=== PATIENT | male | born 1955 | race Caucasian/White ===

== ENCOUNTER 2018-06-15 23:22 | Inpatient (IN) | payer BC, MEDICARE ==
[~2018-06-15] VITALS: Ht 165.1 cm; Wt 80.9 kg
--- NOTE | ~2018-06-15 | OP ---
PATIENT NAME: FAISAL RUIZ MEDICAL RECORD: [id number] :59 LOCATION:D.[facility] D.2308 ADMISSION DATE:06/15/18 SURGEON: CANDE STORY MD DATE OF OPERATION: 06/19/2018 This is a 2D only. FINDINGS: No LVH. LV internal dimensions are normal. Wall motion is normal. EF is greater than or equal to 55%. Aortic valve is tricuspid. Left atrium grossly appears of normal dimensions. Mitral valve shows no prolapse. Right-sided chambers are grossly normal. Probable vegetation is noted on tricuspid valve but transthoracic difficult to see if this involves a pacemaker lead as well. Consider transesophageal echo felt to be clinically indicated. TRANSINT:[id number] Voice Confirmation ID: [id number] DOCUMENT ID: [id number] CANDE STORY MD at 1546 CC: [id number] DICTATION DATE: 06/19/18 1522 HVAC FIELD SERVICE TECHNICIAN: 06/19/18 2224 DIS IN 06/23/18 [facility] [address] [place] [address]
--- NOTE | ~2018-06-15 | MORECARE ---
CASE MANAGEMENT DISCHARGE SUMMARY PATIENT: FAISAL YANG UNIT: [id number] ADM DATE: 06/15/18 AGE: 62 : 59 SEX: M ROOM/BED: D.2308 AUTHOR: OLIVIA,DOC PHYSICIAN: REFERRING PHYSICIAN: GENNA LEWIS MD DATE OF SERVICE: 06/22/18 Discharge Plan Patient Name: FAISAL YANG Facility: [facility]:[place] : 1955 Planned Disposition: Home Anticipated Discharge Date: Discharge Date: Expected LOS: Initial Reviewer: [email or web address] Initial Review Date: 06/17/2018 Generated: 06/22/18 7:37 pm Comments DCP- Discharge Planning Updated by [email or web address]: Rosa Nettles on 06/22/18 5:[address] BALBUENA ADVISED CM THAT HE HAD ORDERED A HOSPICE CONSULT. HE HAD SPOKEN WITH THE WHO STAYS AT THE PATIENT'S BEDSIDE. SHE WOULD LIKE TO TAKE HER HOME ON HOSPICE. SHE DID NOT HAVE A PREFERRED PROVIDER. CM REVIEWED HOSPICE PROVIDERS. TC TO [facility]. CM SPOKE WITH JUVE THE SCHOOL ATTENDANCE SECRETARY NURSE. . SHE HAD TO CHECK WHICH OFFICE WOULD COVER THE [place] AREA. CM RECEIVED CB THAT THE [place] OFFICE OF [facility] WILL COVER. SOMEONE WILL BE IN TO SPEAK WITH THE IN THE AM. PLAN FOR DISCHARGE POSSIBLY SUNDAY LIKELY SUNDAY. CM WILL FOLLOW TO ASSIST. CM PROVDED CONTACT PHONE NUMBER FOR THE IN THE PATIENT'S ROOM SHE DOES NOT HAVE A CELL PHONE. CM ADVOSED THE , LAURA YANG. PACKET PREPARED FOR REVIEW IN THE AM. DCP- Discharge Planning Updated by [email or web address]: Yasmine Macias on 06/17/18 12:[address] Patient Name: FAISAL YANG Admission Status: Elective Accout number: [id number] Admission Date: 06-15-2018 : 1955 Admission Diagnosis: Attending: GENNA LEWIS Current LOS: 2 Anticipated DC Date: Planned Disposition: Home Primary Insurance: [employer] OUT OF STATE Discharge Planning Comments: CM met with patient and spouse Laura at bedside. Patient confused at this time. Laura states he was independent of all ADLs prior to admission to hospital in [place]. Patient has oxygen at home and uses it as needed. CPAP and walker at home. Laura states that his confusion comes and goes. Laura denies any discharge needs at this time. CM will continue to follow and assist as needed with discharge planning. Manager Business Banking: Yasmine Macias DCPIA - Discharge Planning Initial Assessment Updated by [email or web address]: Yasmine Macias on 06/17/18 12:49 pm * Is the patient Alert and Oriented? Yes * How many steps to enter\exit or inside your home? * PCP Dr Delaney * Pharmacy [facility] * Preadmission Environment Home with Family * ADLs Independent * Equipment Oxygen * Other Equipment CPAP, 02 PRN. Walker * List name and contact numbers for known caregivers / representatives who currently or will assist patient after discharge: Laura Yang - spouse- [phone] Luci Barrientos - daughter [phone] * Verbal permission to speak to the caregivers and representatives has been obtained from the patient. Yes * Community resources currently utilized None * Additional services required to return to the preadmission environment? No * Can the patient safely return to the preadmission environment? Yes * Has this patient been hospitalized within the prior 30 days at any hospital? No Last DP export: 06/17/18 12:11 Patient Name: FAISAL YANG Page 04283 at 1837 All edits/amendments must be made on the electronic document DICTATION DATE: 06/22/181835 FELLED SEAM OPERATOR CHAINSTITCH: ANDREW 06/22/181835 RPT#: [id number] DC DATE: STATUS: ADM IN [facility] [address] [place] [address] END OF REPORT
--- NOTE | ~2018-06-15 | CN ---
PATIENT NAME:FAISAL RUIZ MEDICAL RECORD: [id number] : 59 LOCATION:[facility].2308 ADMIT DATE: 06/15/18 ACCOUNT: [id number] CONSULTING PHYSICIAN: HELENA LUND MD REFERRING PHYSICIAN: GENNA LEWIS MD DATE OF CONSULTATION: 06/18/2018 PSYCHIATRIC EVALUATION IDENTIFYING DATA: The patient is 62 years old and he is admitted to the hospital on a voluntary basis. CHIEF COMPLAINT: Confusion. HISTORY OF PRESENT ILLNESS: The patient has a very long and complicated medical history. He is hypertensive, has hyperlipidemia and coronary artery disease. He is also diabetic and has diabetic gastroparesis and diabetic-related neuropathy. Apparently, he has been recently having a coffee-ground emesis vomiting and was admitted to the hospital. He subsequently has become combative and agitated and is thought to be septic. He was transferred to the intensive care unit where he is not oriented to person, place, time or situation and has been striking out at those around him. His is present at bedside and says that this happened to him before when he was "medically ill." She also indicates that prior to this episode of illness, he was awake, alert, coherent, and even though he is medically compromised in very significant ways, he has no serious or identifiable cognitive impairments. He has no psychiatric history and he is not a drinker or drug user. MENTAL STATUS EXAMINATION: The patient is asleep, but arousable. He is disoriented and uncooperative. He is rambling and incoherent and full mental status testing is impossible. Fortunately, his is available to give the longitudinal history that is needed. ASSESSMENT: Delirium secondary to multiple medical factors. PLAN: At this time, the patient will be given a scheduled dose of Trilafon. In addition to that, I am going to give him an as needed dose of Geodon for his agitation. I suspect that as his toxic and metabolic abnormalities improve, so will his cognition. TRANSINT:[id number] Voice Confirmation ID: [id number] DOCUMENT ID: [id number] HELENA LUND MD at 1128 CC: [id number] DICTATION DATE: 06/18/18 1511 SENIOR WAREHOUSE CLERK: 06/18/18 1717 ADM IN [place] [id number] [place], [place] [id number]
--- NOTE | ~2018-06-15 | MORECARE ---
CASE MANAGEMENT DISCHARGE SUMMARY PATIENT: FAISAL YANG UNIT: [id number] ADM DATE: 06/15/18 AGE: 62 : 59 SEX: M ROOM/BED: D.2308 AUTHOR: OLIVIA,DOC PHYSICIAN: REFERRING PHYSICIAN: GENNA LEWIS MD DATE OF SERVICE: 06/17/18 Discharge Plan Patient Name: FAISAL YANG Facility: [facility]:[place] : 1955 Planned Disposition: Home Anticipated Discharge Date: Discharge Date: Expected LOS: Initial Reviewer: [id number] Initial Review Date: 06/17/2018 Generated: 06/17/18 2:11 pm Comments DCP- Discharge Planning Updated by [id number]: Yasmine Macias on 06/17/18 12:[address] Patient Name: FAISAL YANG Admission Status: Elective Accout number: [id number] Admission Date: 06-15-2018 : 1955 Admission Diagnosis: Attending: GENNA LEWIS Current LOS: 2 Anticipated DC Date: Planned Disposition: Home Primary Insurance: [employer] OUT OF STATE Discharge Planning Comments: CM met with patient and spouse Laura at bedside. Patient confused at this time. Laura states he was independent of all ADLs prior to admission to hospital in [place]. Patient has oxygen at home and uses it as needed. CPAP and walker at home. Laura states that his confusion comes and goes. Laura denies any discharge needs at this time. CM will continue to follow and assist as needed with discharge planning. Small Engine Technician: Yasmine Macias DCPIA - Discharge Planning Initial Assessment Updated by [email or web address]: Yasmine Macias on 06/17/18 12:49 pm * Is the patient Alert and Oriented? Yes * How many steps to enter\exit or inside your home? * PCP Dr Delaney * Pharmacy [facility] * Preadmission Environment Home with Family * ADLs Independent * Equipment Oxygen * Other Equipment CPAP, 02 PRN. Walker * List name and contact numbers for known caregivers / representatives who currently or will assist patient after discharge: Laura Yang - spouse- [phone] Luci Barrientos - daughter [phone] * Verbal permission to speak to the caregivers and representatives has been obtained from the patient. Yes * Community resources currently utilized None * Additional services required to return to the preadmission environment? No * Can the patient safely return to the preadmission environment? Yes * Has this patient been hospitalized within the prior 30 days at any hospital? No Last DP export: 06/17/18 11:52 Patient Name: FAISAL YANG Page 70528 at 1311 All edits/amendments must be made on the electronic document DICTATION DATE: 06/17/18 1311 MANUFACTURING ASSEMBLER: ANDREW 06/17/18 1311 RPT#: [id number] DC DATE: STATUS: ADM IN [facility] [address] [place] [address] END OF REPORT
--- NOTE | ~2018-06-15 | MORECARE ---
CASE MANAGEMENT DISCHARGE SUMMARY PATIENT: FAISAL YANG UNIT: [id number] ADM DATE: 06/15/18 AGE: 62 : 59 SEX: M ROOM/BED: D.2308 AUTHOR: LEIF BAKER PHYSICIAN: REFERRING PHYSICIAN: GENNA LEWIS MD DATE OF SERVICE: 06/17/18 Discharge Plan Patient Name: FAISAL YANG [facility] [facility] 1955 Planned Disposition: Home Anticipated Discharge Date: Discharge Date: Expected LOS: Initial Reviewer: [email or web address] Initial Review Date: 06/17/2018 Generated: 06/17/18 1:52 pm DCPIA - Discharge Planning Initial Assessment Updated by [email or web address]: Yasmine Macias on 06/17/18 12:49 pm * Is the patient Alert and Oriented? Yes * How many steps to enter\exit or inside your home? * PCP Dr Delaney * Pharmacy [facility] * Preadmission Environment Home with Family * ADLs Independent * Equipment Oxygen * Other Equipment CPAP, 02 PRN. Walker * List name and contact numbers for known caregivers / representatives who currently or will assist patient after discharge: Laura Yang - spouse- [phone] Luci Barrientos - daughter [phone] * Verbal permission to speak to the caregivers and representatives has been obtained from the patient. Yes * Community resources currently utilized None * Additional services required to return to the preadmission environment? No * Can the patient safely return to the preadmission environment? Yes * Has this patient been hospitalized within the prior 30 days at any hospital? No Patient Name: FAISAL YANG Page 61085 at 1252 All edits/amendments must be made on the electronic document DICTATION DATE: 06/17/18 125 MASTER CERTIFIED RV TECHNICIAN: ANDREW 06/17/18 1252 RPT#: [id number] DC DATE: STATUS: ADM IN [facility] [address] [place] [address] END OF REPORT
--- NOTE | ~2018-06-15 | MORECARE ---
CASE MANAGEMENT DISCHARGE SUMMARY PATIENT: FAISAL YANG UNIT: [id number] ADM DATE: 06/15/18 AGE: 62 : 59 SEX: M ROOM/BED: D.2308 AUTHOR: OLIVIA,DOC PHYSICIAN: REFERRING PHYSICIAN: GENNA LEWIS MD DATE OF SERVICE: 06/24/18 Discharge Plan Patient Name: FAISAL YANG Facility: [facility]:[place] : 1955 Planned Disposition: Home Anticipated Discharge Date: Discharge Date: 06/23/2018 Expected LOS: Initial Reviewer: [email or web address] Initial Review Date: 06/17/2018 Generated: 06/24/18 11:05 am Comments DCP- Discharge Planning Updated by [email or web address]: Rosa Nettles on 06/22/18 5:[address] BALBUENA ADVISED CM THAT HE HAD ORDERED A HOSPICE CONSULT. HE HAD SPOKEN WITH THE WHO STAYS AT THE PATIENT'S BEDSIDE. SHE WOULD LIKE TO TAKE HER HOME ON HOSPICE. SHE DID NOT HAVE A PREFERRED PROVIDER. CM REVIEWED HOSPICE PROVIDERS. TC TO [facility]. CM SPOKE WITH JUVE THE LAYER OUT NURSE. . SHE HAD TO CHECK WHICH OFFICE WOULD COVER THE [place] AREA. CM RECEIVED CB THAT THE [place] OFFICE OF [facility] WILL COVER. SOMEONE WILL BE IN TO SPEAK WITH THE IN THE AM. PLAN FOR DISCHARGE POSSIBLY SUNDAY LIKELY SUNDAY. CM WILL FOLLOW TO ASSIST. CM PROVDED CONTACT PHONE NUMBER FOR THE IN THE PATIENT'S ROOM SHE DOES NOT HAVE A CELL PHONE. CM ADVOSED THE , LAURA YANG. PACKET PREPARED FOR REVIEW IN THE AM. DCP- Discharge Planning Updated by [email or web address]: Yasmine Macias on 06/17/18 12:[address] Patient Name: FAISAL YANG Admission Status: Elective Accout number: [id number] Admission Date: 06-15-2018 : 1955 Admission Diagnosis: Attending: GENNA LEWIS Current LOS: 2 Anticipated DC Date: Planned Disposition: Home Primary Insurance: [employer] OUT OF STATE Discharge Planning Comments: CM met with patient and spouse Laura at bedside. Patient confused at this time. Laura states he was independent of all ADLs prior to admission to hospital in [place]. Patient has oxygen at home and uses it as needed. CPAP and walker at home. Laura states that his confusion comes and goes. Laura denies any discharge needs at this time. CM will continue to follow and assist as needed with discharge planning. Smasher: Yasmine Macias DCPIA - Discharge Planning Initial Assessment Updated by [email or web address]: Yasmine Macias on 06/17/18 12:49 pm * Is the patient Alert and Oriented? Yes * How many steps to enter\exit or inside your home? * PCP Dr Delaney * Pharmacy [facility] * Preadmission Environment Home with Family * ADLs Independent * Equipment Oxygen * Other Equipment CPAP, 02 PRN. Walker * List name and contact numbers for known caregivers / representatives who currently or will assist patient after discharge: Laura Yang - spouse- [phone] Luci Barrientos - daughter [phone] * Verbal permission to speak to the caregivers and representatives has been obtained from the patient. Yes * Community resources currently utilized None * Additional services required to return to the preadmission environment? No * Can the patient safely return to the preadmission environment? Yes * Has this patient been hospitalized within the prior 30 days at any hospital? No Last DP export: 06/22/18 5:37 Patient Name: FAISAL YANG Page 10190 at 1006 All edits/amendments must be made on the electronic document DICTATION DATE: 06/24/18 1005 BRAZING MACHINE OPERATOR HELPER: ANDREW 06/24/18 1005 RPT#: [id number] DC DATE:06/23/18 STATUS: DIS IN [facility] [address] [place] [address] END OF REPORT
--- NOTE | ~2018-06-15 | EC ---
PATIENT:FAISAL RUIZ DATE OF SERVICE: 06/15/18 SEX: M MEDICAL RECORD: [id number] DATE OF : [birth year] LOCATION:[facility] D230 AGE OF PATIENT: 62 ADMISSION DATE: 06/15/18 REFERRING PHYSICIAN: INTERPRETING PHYSICIAN: RAJESH RICH MD ECHOCARDIOGRAM REPORT ECHO CHARGES 4 ECHO COMPLETE Date: 06/16/18 CLINICAL DIAGNOSIS: CHF ECHOCARDIOGRAPHIC MEASUREMENTS (adult normal given) AC root (d.<3.7cm) 3.2 cm LV Septum d (<1.2 cm> 1.4 cm Valve Excursion 1.6 cm LV Septum (systole) 1.5 cm Left Atria (s.<4.0cm> 3.8 cm LVPW d(<1.2cm) 0.9 cm RV (d.<2.3cm) 2.4 cm LVPW (sytole) 1.1 cm LV diastole(<5.6CM) 4.7 cm MV E-F(>70mm/sec) cm LV systole 4.0 cm LVOT Diameter 2.1 cm MV exc.(>10mm) cm Est.ejection fraction (50-75%) % DOPPLER: LVIT cm/sec A cm/sec E cm/sec LA cm/sec RVSP 23.7 mmHg LVOT cm/sec AOP1/2T m/s Asc. Ao cm/sec RVOT cm/sec RA cm/sec PA cm/sec AV Gradient Peak mmHg AV Mean mmHg AV Area cm MV Gradient Peak mmHg MV Mean mmHg MV Area cm COMMENTS: Supervisor Liquefaction: John MY ODELL Ski Molder: Lulu Rich TAPE# PACS Pericardial Effusion N DATE OF SERVICE: 06/16/2018 PROCEDURE: Echocardiogram. FINDINGS: 1. Technically difficult study secondary to the patient being combative. 2. Left ventricular chamber size appears to be within normal limits. Left ventricular systolic function is normal. Overall ejection fraction 55% to 60%. 3. Left atrium, right atrium, and right ventricle chamber sizes are within normal limits. ECHOCARDIOGRAM REPORT [id number] FAISAL RUIZ 4. Valvular structures have normal structure and motion. 5. Doppler interrogation only reveals mild tricuspid regurgitation, no other valvular insufficiency or stenosis. Pulmonary systolic pressure is estimated at 24 mmHg. 6. No evidence of pericardial effusion or left ventricular thrombus. TRANSINT:[id number] Voice Confirmation ID: [id number] DOCUMENT ID: [id number] ADDENDUM: On review of the images, although technically difficult due to the patient being combative, there does appear to be a vegetation on the tricuspid valve compatible with endocarditis. Dictation ID #[id number] RAJESH RICH MD at 1228 CC: [id number] DICTATION DATE: 06/17/18 1002 VEGETABLE GRADER: 06/17/18 1138 [place] [address]
--- NOTE | ~2018-06-15 | TEE ---
PATIENT:FAISAL RUIZ MEDICAL RECORD: [id number] LOCATION:[facility] AGE OF PATIENT: 62 ADMISSION DATE: 06/15/18 SEX: M REFERRING PHYSICIAN: INTERPRETING PHYSICIAN: CANDE STORY MD TRANSESOPHAGEAL ECHOCARDIOGRAM Date: 06/21/18 YESSICA CHARGE Y INDICATIONS: DVT PREMEDICATIONS: PATIENT'S RESPONSE PROCEDURE DOPPLER MEASUREMENTS: LVIT 0 LA 0 PA 0 RA 0 LVOT 0 RVOT 0 Asc. Ao 0 AV Gradient Peak 0 AV Mean 0 AV Area 0 MV Gradient Peak 0 MV Mean 0 MV Area 0 INTERPRETATION: Doppler: 2-D: COLOR FLOW DOPPLER NORMAL SALINE STUDY: MISCELLANOUS: DIAGNOSIS: PLAN: Sequins Slinger:3 Dr. Hernandez Diesel Engine Inspector: Maxi ARMSTRONG COMMENTS: LIMITED STUDY (2-D ONLY) DATE OF SERVICE: 06/21/2018 TRANSESOPHAGEAL NOTE DESCRIPTION OF PROCEDURE: After general sedation via TIVA with anesthesia, transesophageal Omniplane probe was placed in the distal esophagus and proximal stomach without difficulty. FINDINGS: No LVH. LV internal dimension is normal. Wall motion is normal. EF TRANSESOPHAGEAL ECHOCARDIOGRAM REPORT [id number] FAISAL RUIZ is greater than or equal to 55%. The aortic valve is tricuspid. There is no evidence of stenosis by Doppler interrogation. The left atrium appears normal. Mitral valve appears normal with no evidence of prolapse. Trace MR. Right side, there is a mass lesion that appears to involve the right atrial septal wall extending into the previously placed pacemaker. This involves the pacemaker itself measuring up to 2.5 cm in diameter. There is some calcification, no fibrinous strands, does not have a typical myxomatous appearance. Does not appear to be a vegetation concerning for possible metastatic lesion obviously. I discussed the case with primary care. TRANSINT:[id number] Voice Confirmation ID: [id number] DOCUMENT ID: [id number] at 1546 CC: [id number] DICTATION DATE: 06/21/18 1406 SPEEDER OPERATOR: 06/21/182008 DIS IN 06/23/18 [facility] [address] [place] [address]
[~2018-06-15 23:22] MED LIST: FLUTICASONE PRO16 GM
[2018-06-15 23:30] VITALS: BP 104/68; BP 110/71; BMI 24.4
[2018-06-15] MEDS ORDERED: TYLENOL #4 W/CO1 TAB (23:55)
[2018-06-15] MEDS ORDERED: TENORMIN25 MG (23:56)
[2018-06-15] MEDS ORDERED: CARAFATE1 G PO (23:57)
[2018-06-15] MEDS ORDERED: CYCLOBENZAPRINE10 MG PO (23:58)
[2018-06-15] MEDS ORDERED: CYMBALTA60 MG PO (23:59)
[2018-06-16] VITALS (24 sets, daily range): BP systolic 95–203; BP diastolic 42–112
[2018-06-16] MEDS ORDERED: FLUDROCORTISON0.1 MG PO (00:02)
[2018-06-16] MEDS ORDERED: NEURONTIN 400400 MG PO (00:04)
[2018-06-16] MEDS ORDERED: KLONOPIN1 MG (00:15)
[2018-06-16] MEDS ORDERED: BASAGLAR K100 UNIT/1 SC (00:18)
[2018-06-16] MEDS ORDERED: NOVOLOG100 UNIT/1 SQ (00:19)
[2018-06-16] MEDS ORDERED: OMEPRAZOLE20 M1 PO (00:20)
[2018-06-16] MEDS ORDERED: ZANTAC300 MG PO (00:21)
[2018-06-16] MEDS ORDERED: ZOFRAN8 MG (00:24)
[2018-06-16] MEDS ORDERED: ULTRAM50 MG PO (00:26)
[2018-06-16 02:53] LABS: BASOPHILS 0.1 % (0-2); EOSINOPHILS 0.1 % (0-7); HEMATOCRIT 31.1 % (42.0-54.0); HEMOGLOBIN 10.2 g/dL (13.5-17.5); IMMATURE GRANULOCYTES 0.3 % (0-5); LYMPHOCYTES 7.5 % (15-50); MCH 27.3 pg (26.0-34.0); MCHC 32.8 g/dL (31.0-37.0); MCV 83.4 fL (80.0-100.0); MONOCYTES 8.6 % (2-11); NEUTROPHILS 83.4 % (40-80); PLATELET COUNT 62 10x3/uL (130-400); RBC 3.73 10x6/uL (4.20-6.10); RDW 18.3 % (11.5-14.5); WBC 14.6 10x3/uL (4.8-10.8)
[2018-06-16 03:01] LABS: INR 1.3 (0.85-1.17); PROTIME 15.7 SECONDS (11.6-15.0)
[2018-06-16 03:02] LABS: APTT 33.6 SECONDS (22.8-39.4)
[2018-06-16 03:06] LABS: ALBUMIN 2.9 g/dL (3.4-5.0); BILIRUBIN - DIRECT 0.34 mg/dL (0.00-0.30); BILIRUBIN - INDIRECT 0.72 mg/dL (0.00-1.00); BILIRUBIN - TOTAL 1.06 mg/dL (0.2-1.3); CALCIUM 8.3 mg/dL (8.5-10.1); CARBON DIOXIDE 26.6 mmol/L (21.0-32.0); CREATININE - SERUM 2.8 mg/dL (0.6-1.3); MAGNESIUM - SERUM 1.8 mg/dL (1.8-2.4); PHOSPHOROUS 6.3 mg/dL (2.5-4.9); POTASSIUM - SERUM 4.6 mmol/L (3.5-5.1); PROTEIN - SERUM 6.5 g/dL (6.4-8.2)
[2018-06-16 03:46] LABS: PLATELET ESTIMATE DECREASED
[2018-06-16 05:25] LABS: APPEARANCE CLEAR (CLEAR); BILIRUBIN NEGATIVE (NEGATIVE); COLOR YELLOW (YELLOW); GLUCOSE 100 mg/dL (NEGATIVE); KETONE SMALL mg/dL (NEGATIVE); NITRITE NEGATIVE (NEGATIVE); PROTEIN TRACE mg/dL (NEGATIVE); UROBILINOGEN NORMAL (NORMAL)
[2018-06-16 09:42] LABS: UDS - AMPHET NEGATIVE QUAL (NEGATIVE); UDS - BARB NEGATIVE QUAL (NEGATIVE); UDS - BENZO NEGATIVE QUAL (NEGATIVE); UDS - COCAINE NEGATIVE QUAL (NEGATIVE); UDS - OPIATE POSITIVE QUAL (NEGATIVE); UDS - PCP NEGATIVE QUAL (NEGATIVE); UDS - THC NEGATIVE QUAL (NEGATIVE)
[2018-06-16 09:42] LABS: CHOL - HDL RATIO 4.8 ratio (2.3-4.9); LDL-HDL RATIO 3.1 ratio (1.5-3.5)
[2018-06-16 10:07] LABS: % SATURATION 11 % (15-55); IRON 34 ug/dl (35-150); TOTAL IRON BIND CAPACITY 295 ug/dl (260-445); UNSAT IRON BIND CAPACITY 261 ug/dl (150-375)
[2018-06-17] VITALS (23 sets, daily range): BP systolic 76–206; BP diastolic 62–149; BMI 24.9
[2018-06-17 03:39] LABS: BASOPHILS 0.1 % (0-2); EOSINOPHILS 1.1 % (0-7); HEMATOCRIT 25.6 % (42.0-54.0); HEMOGLOBIN 8.5 g/dL (13.5-17.5); IMMATURE GRANULOCYTES 0.2 % (0-5); LYMPHOCYTES 7.1 % (15-50); MCH 27.9 pg (26.0-34.0); MCHC 33.2 g/dL (31.0-37.0); MCV 83.9 fL (80.0-100.0); MONOCYTES 7.4 % (2-11); NEUTROPHILS 84.1 % (40-80); RBC 3.05 10x6/uL (4.20-6.10); RDW 18.1 % (11.5-14.5); WBC 10.6 10x3/uL (4.8-10.8)
[2018-06-17 03:40] LABS: PLATELET COUNT 48 10x3/uL (130-400)
[2018-06-17 03:53] LABS: ALBUMIN 2.4 g/dL (3.4-5.0); ANION GAP 15.3 mmol/L (8-16); BILIRUBIN - TOTAL 0.64 mg/dL (0.2-1.3); CALCIUM 7.2 mg/dL (8.5-10.1); CARBON DIOXIDE 24.8 mmol/L (21.0-32.0); CREATININE - SERUM 3.2 mg/dL (0.6-1.3); PROTEIN - SERUM 5.5 g/dL (6.4-8.2)
[2018-06-17 03:54] LABS: POTASSIUM - SERUM 3.1 mmol/L (3.5-5.1)
[2018-06-17 06:01] LABS: BASOPHILS 0.2 % (0-2); EOSINOPHILS 1.9 % (0-7); HEMATOCRIT 26.9 % (42.0-54.0); HEMOGLOBIN 8.9 g/dL (13.5-17.5); IMMATURE GRANULOCYTES 0.2 % (0-5); LYMPHOCYTES 7.2 % (15-50); MCH 27.6 pg (26.0-34.0); MCHC 33.1 g/dL (31.0-37.0); MCV 83.5 fL (80.0-100.0); MONOCYTES 6.5 % (2-11); RBC 3.22 10x6/uL (4.20-6.10); RDW 17.8 % (11.5-14.5); WBC 10.5 10x3/uL (4.8-10.8)
[2018-06-17 06:10] LABS: PLATELET COUNT 47 10x3/uL (130-400)
[2018-06-18] VITALS (26 sets, daily range): BP systolic 95–192; BP diastolic 60–107
[2018-06-18 03:42] LABS: BASOPHILS 0.2 % (0-2); EOSINOPHILS 2.6 % (0-7); HEMATOCRIT 28.7 % (42.0-54.0); HEMOGLOBIN 9.5 g/dL (13.5-17.5); IMMATURE GRANULOCYTES 0.1 % (0-5); LYMPHOCYTES 5.7 % (15-50); MCH 27.5 pg (26.0-34.0); MCHC 33.1 g/dL (31.0-37.0); MCV 83.2 fL (80.0-100.0); MONOCYTES 6.6 % (2-11); NEUTROPHILS 84.8 % (40-80); RBC 3.45 10x6/uL (4.20-6.10); WBC 8.4 10x3/uL (4.8-10.8)
[2018-06-18 03:51] LABS: PLATELET COUNT 67 10x3/uL (130-400)
[2018-06-18 04:06] LABS: ALBUMIN 2.6 g/dL (3.4-5.0); ANION GAP 14.2 mmol/L (8-16); BILIRUBIN - TOTAL 0.6 mg/dL (0.2-1.3); CALCIUM 7.8 mg/dL (8.5-10.1); CARBON DIOXIDE 23.7 mmol/L (21.0-32.0); CREATININE - SERUM 2.9 mg/dL (0.6-1.3); PROTEIN - SERUM 6.1 g/dL (6.4-8.2)
[2018-06-18 04:07] LABS: POTASSIUM - SERUM 3.9 mmol/L (3.5-5.1)
[2018-06-18 08:19] LABS: FOLATE (FOLIC ACID) - SERUM >20.0 ng/mL (>3.0)
[2018-06-19] VITALS (25 sets, daily range): BP systolic 92–169; BP diastolic 57–105; Ht 165.1 cm; Wt 80.9 kg
[2018-06-19 04:52] LABS: BASOPHILS 0.2 % (0-2); EOSINOPHILS 1.7 % (0-7); HEMATOCRIT 29.2 % (42.0-54.0); HEMOGLOBIN 9.3 g/dL (13.5-17.5); IMMATURE GRANULOCYTES 0.1 % (0-5); LYMPHOCYTES 7.1 % (15-50); MCH 27.6 pg (26.0-34.0); MCHC 31.8 g/dL (31.0-37.0); MONOCYTES 11.3 % (2-11); NEUTROPHILS 79.6 % (40-80); RBC 3.37 10x6/uL (4.20-6.10); RDW 18.8 % (11.5-14.5); WBC 8.1 10x3/uL (4.8-10.8)
[2018-06-19 04:53] LABS: MCV 86.6 fL (80.0-100.0); PLATELET COUNT 82 10x3/uL (130-400)
[2018-06-19 05:00] LABS: ALBUMIN 2.6 g/dL (3.4-5.0); ANION GAP 11.5 mmol/L (8-16); BILIRUBIN - TOTAL 0.32 mg/dL (0.2-1.3); CALCIUM 7.5 mg/dL (8.5-10.1); CARBON DIOXIDE 27.6 mmol/L (21.0-32.0); CREATININE - SERUM 3.4 mg/dL (0.6-1.3); POTASSIUM - SERUM 4.1 mmol/L (3.5-5.1); PROTEIN - SERUM 6.3 g/dL (6.4-8.2)
[2018-06-20] VITALS (25 sets, daily range): BP systolic 94–156; BP diastolic 40–99
[2018-06-20 04:07] LABS: BASOPHILS 0.2 % (0-2); EOSINOPHILS 2.5 % (0-7); HEMATOCRIT 26.6 % (42.0-54.0); HEMOGLOBIN 8.5 g/dL (13.5-17.5); IMMATURE GRANULOCYTES 0.5 % (0-5); LYMPHOCYTES 10.9 % (15-50); MCH 27.9 pg (26.0-34.0); MCV 87.2 fL (80.0-100.0); MEAN PLATELET VOLUME 11.7 fL (7.4-10.4); MONOCYTES 7.1 % (2-11); NEUTROPHILS 78.8 % (40-80); PLATELET COUNT 85 10x3/uL (130-400); RBC 3.05 10x6/uL (4.20-6.10); RDW 18.9 % (11.5-14.5); WBC 6.5 10x3/uL (4.8-10.8)
[2018-06-20 04:28] LABS: ALBUMIN 2.6 g/dL (3.4-5.0); BILIRUBIN - TOTAL 0.36 mg/dL (0.2-1.3); CALCIUM 7.9 mg/dL (8.5-10.1); CARBON DIOXIDE 22.3 mmol/L (21.0-32.0); CREATININE - SERUM 4.2 mg/dL (0.6-1.3)
[2018-06-20 04:38] LABS: ANION GAP 15.8 mmol/L (8-16); POTASSIUM - SERUM 3.1 mmol/L (3.5-5.1)
[2018-06-21] VITALS (32 sets, daily range): BP systolic 71–142; BP diastolic 32–93
[2018-06-21 04:25] LABS: BASOPHILS 0.2 % (0-2); EOSINOPHILS 1.9 % (0-7); HEMATOCRIT 26.1 % (42.0-54.0); HEMOGLOBIN 8.3 g/dL (13.5-17.5); IMMATURE GRANULOCYTES 0.9 % (0-5); LYMPHOCYTES 10.3 % (15-50); MCH 27.3 pg (26.0-34.0); MCHC 31.8 g/dL (31.0-37.0); MCV 85.9 fL (80.0-100.0); MEAN PLATELET VOLUME 11.7 fL (7.4-10.4); NEUTROPHILS 77.7 % (40-80); PLATELET COUNT 76 10x3/uL (130-400); RBC 3.04 10x6/uL (4.20-6.10); RDW 18.9 % (11.5-14.5); WBC 5.3 10x3/uL (4.8-10.8)
[2018-06-21 04:51] LABS: ALBUMIN 2.5 g/dL (3.4-5.0); ANION GAP 19.5 mmol/L (8-16); BILIRUBIN - TOTAL 0.39 mg/dL (0.2-1.3); CALCIUM 7.4 mg/dL (8.5-10.1); CARBON DIOXIDE 17.1 mmol/L (21.0-32.0); POTASSIUM - SERUM 3.6 mmol/L (3.5-5.1)
[2018-06-22] VITALS (23 sets, daily range): BP systolic 87–141; BP diastolic 55–95
[2018-06-22 03:23] LABS: BASOPHILS 0.1 % (0-2); EOSINOPHILS 1.6 % (0-7); HEMATOCRIT 26.7 % (42.0-54.0); HEMOGLOBIN 8.6 g/dL (13.5-17.5); IMMATURE GRANULOCYTES 0.2 % (0-5); LYMPHOCYTES 5.8 % (15-50); MCH 27.8 pg (26.0-34.0); MCHC 32.2 g/dL (31.0-37.0); MCV 86.4 fL (80.0-100.0); MEAN PLATELET VOLUME 11.9 fL (7.4-10.4); MONOCYTES 9.3 % (2-11); PLATELET COUNT 90 10x3/uL (130-400); RBC 3.09 10x6/uL (4.20-6.10); RDW 18.8 % (11.5-14.5)
[2018-06-22 03:29] LABS: WBC 8.1 10x3/uL (4.8-10.8)
[2018-06-22 04:03] LABS: ALBUMIN 2.5 g/dL (3.4-5.0); ANION GAP 16.7 mmol/L (8-16); BILIRUBIN - TOTAL 0.4 mg/dL (0.2-1.3); CALCIUM 7.5 mg/dL (8.5-10.1); CARBON DIOXIDE 17.9 mmol/L (21.0-32.0); CREATININE - SERUM 4.9 mg/dL (0.6-1.3); MAGNESIUM - SERUM 1.3 mg/dL (1.8-2.4); PHOSPHOROUS 5.4 mg/dL (2.5-4.9); POTASSIUM - SERUM 3.6 mmol/L (3.5-5.1); THYROID STIMULATING HORMONE 0.85 uIU/mL (0.36-3.74)
[2018-06-25 06:14] LABS: HEPATITIS C ANTIBODY <0.1 S/CO RAT (0.0-0.9)
[2018-06-25 07:28] LABS: ALPHA FETOPROTEIN -(TUMOR MRK) 1.4 ng/mL (0.0-8.3); CA 19-9 10 U/mL (0-35); CEA 2.9 ng/mL (0.0-4.7)
== END 2018-06-23 00:15 | DRG 871 ==
LOC: D.ICU 23:22 → D.M3 23:22 → D.ICU 06-17 21:52
PROVIDERS: Family Medicine; Internal Medicine Gastroenterology; Internal Medicine Hematology & Oncology; Internal Medicine Nephrology
PROC: 0DJ08ZZ Inspection of Upper Intestinal Tract, Via Natural or Artificial Opening Endoscopic (ICD-10-PCS; principal; 2018-06-17 16:00)
DX: A41.9 Sepsis, unspecified organism (principal); G92 Toxic encephalopathy; R40.2214 Coma scale, best verbal response, none, 24 hours or more after hospital admission; K22.11 Ulcer of esophagus with bleeding; D62 Acute posthemorrhagic anemia; E87.2 Acidosis; N17.9 Acute kidney failure, unspecified; F17.203 Nicotine dependence unspecified, with withdrawal; C79.89 Secondary malignant neoplasm of other specified sites; I38 Endocarditis, valve unspecified; I12.9 Hypertensive chronic kidney disease with stage 1 through stage 4 chronic kidney disease, or unspecified chronic kidney disease; E11.22 Type 2 diabetes mellitus with diabetic chronic kidney disease; N18.9 Chronic kidney disease, unspecified; Z66 Do not resuscitate; J44.9 Chronic obstructive pulmonary disease, unspecified; I25.10 Atherosclerotic heart disease of native coronary artery without angina pectoris; E78.5 Hyperlipidemia, unspecified; K75.81 Nonalcoholic steatohepatitis (NASH); K21.0 Gastro-esophageal reflux disease with esophagitis; D69.6 Thrombocytopenia, unspecified; Z95.0 Presence of cardiac pacemaker; K31.84 Gastroparesis; R40.2363 Coma scale, best motor response, obeys commands, at hospital admission; R40.2143 Coma scale, eyes open, spontaneous, at hospital admission; R40.2243 Coma scale, best verbal response, confused conversation, at hospital admission; R40.2134 Coma scale, eyes open, to sound, 24 hours or more after hospital admission; R40.2354 Coma scale, best motor response, localizes pain, 24 hours or more after hospital admission